=== PATIENT | male | born 1965 | race Caucasian/White ===

== ENCOUNTER 2016-10-08 18:27 | Emergency (ER) | payer SELFPAY ==
[2016-10-08 18:37] VITALS: TEMP 97.4
[2016-10-08] MEDS ORDERED: NEO/POLY/HC OTIC SUSP 10 ML BTTL ONE (18:44)
[2016-10-08] MEDS: NEO/POLY/HC OTIC SUSP 10 ML BTTL LEFT_EAR ONE ×2 (18:50→19:03)
[2016-10-08] MEDS ORDERED: AMOXICILLIN 500 MG CAP PO ONE (18:50)
--- NOTE | 2016-10-08 18:56 | ED.PDOC ---
History of Present Illness - General Chief Complaint: ENT Problem Stated Complaint: left ear pain and drainage for a week Time Seen by Provider: 10/08/16 18:50 Source: patient, RN notes reviewed, Vital Signs reviewed Exam Limitations: no limitations - History of Present Illness Initial Comments: Patient comes in with c/o left ear pain X 1 week. Not improving with OTC treatments for ear wax removal. Feeling more plugged and pain is now going down into his jaw. No fever or chills. Did get nauseated at work today due to having to bend over a lot which made his symptoms worse. Timing/Duration: gradual Severity: moderate EENT Location: ear (L) Prearrival Treatment: over the counter meds Improving Factors: nothing Worsening Factors: nothing Associated Symptoms: change in hearing, facial pain/swelling - L jaw Allergies/Adverse Reactions: Allergies Sulfa Antibiotics Allergy (Verified 10/08/16 18:33) Home Medications: Ambulatory Orders Amoxicillin [Amoxil] 500 mg PO TID #30 cap 10/08/16 Review of Systems - Review of Systems Constitutional: States: no symptoms reported EENTM: States: see HPI, ear pain - Left Respiratory: States: no symptoms reported Cardiology: States: no symptoms reported Gastrointestinal/Abdominal: States: nausea Musculoskeletal: States: no symptoms reported Skin: States: no symptoms reported Neurological: States: no symptoms reported All other Systems: No Change from Baseline Past Medical History (General) - Patient Medical History Hx Seizures: No Hx Stroke: No Hx Dementia: No Hx Asthma: No Hx of COPD: No Hx Cardiac Disorders: No Hx Congestive Heart Failure: No Hx Pacemaker: No Hx Hypertension: No Hx Thyroid Disease: No Hx Diabetes: No Hx Gastroesophageal Reflux: No Hx Renal Disease: No Hx Cancer: No Hx of HIV: No Hx Hepatitis C: No Hx MRSA: No Surgical History: no surgical history - Vaccination History Hx Tetanus, Diphtheria Vaccination: No Hx Influenza Vaccination: No Hx Pneumococcal Vaccination: No Immunizations Up to Date: No - Social History Hx Tobacco Use: Yes Hx Chewing Tobacco Use: No Hx Alcohol Use: Yes Hx Substance Use: No Hx Substance Use Treatment: No Hx Depression: No Feels Threatened In Home Enviroment: No Feels Threatened In a Relationship: No Hx Physical Abuse: No Hx Emotional Abuse: No Hx Suspected Abuse: No - Activities of Daily Living Hospice Agency (if applicable):: None - Female History Patient is a Female of Child Bearing Age (10 -59 yrs old): No Patient : No Family Medical History - Family History Mother Family History: No Known Living Status: Still Living Hx Family Asthma: No Hx Family Congestive Heart Failure: No Hx Family Hypertension: No Hx Family Stroke: No Hx Cardiac Disease: No Hx Family Diabetes: No Hx Family Cancer: Yes - FATHER Physical Exam - Physical Exam General Appearance: Alert, Comfortable, No apparent distress, Well Developed, Well Groomed, Well Hydrated, Well Nourished Ear Exam: left ear: erythema - swelling and tenderness, can't visualize TM, bilateral ear: auricle normal Neck: non-tender, full range of motion, supple, lymphadenopathy (R), lymphadenopathy (L) Cardiovascular/Respiratory: regular rate, rhythm, no M/R/G Neurologic: alert, normal mood/affect, oriented x 3 Skin Exam: normal color, warm/dry Comments: Vital Signs 10/08/16 18:34 Temperature 97.4 F L Pulse Rate [ 72 Left Apical] Respiratory 20 Rate Blood Pressure 189/95 [Left Arm] O2 Sat by Pulse 99 Oximetry Progress - Progress Progress: 10/08/16 18:58 Ear wick placed in L ear without difficulty. 5 drops of Donald-Poly-HC otic drops placed in L ear. Amoxicillin 500mg PO given Departure - Departure Clinical Impression: Otitis externa Qualifiers: Otitis externa type: swimmer's ear Laterality: left Chronicity: acute Qualified Code(s): H60.332 - Swimmer's ear, left ear Time of Disposition: 18:59 Disposition: Discharge to Home or Self Care Condition: Good Departure Forms: ED Discharge - Pt. Copy, Patient Portal Self Enrollment Instructions: DI for Otitis Externa Diet: resume usual diet Activity: increase activity as tolerated Prescriptions: Amoxicillin [Amoxil] 500 mg PO TID #30 cap Home Medications: Ambulatory Orders Amoxicillin [Amoxil] 500 mg PO TID #30 cap 10/08/16 Additional Instructions: Cortisporin Otic: 4 drops in left ear 3X/day for 7 days
[2016-10-08 19:10] VITALS: BP 171/92; O2SAT 100
== END 2016-10-08 19:13 | disposition home or self-care (01) ==
LOC: ER 18:27
DX: H60.332 Swimmer's ear, left ear (principal); Z88.2 Allergy status to sulfonamides; Z87.891 Personal history of nicotine dependence